=== PATIENT | female | born 1950 | race Caucasian/White ===

== ENCOUNTER 2018-06-02 21:39 | Emergency (ER) | payer OTHER ==
--- NOTE | 2018-06-02 21:47 | ER Report ---
History and Physical Time Seen By MD: 21:46 HPI/ROS CHIEF COMPLAINT: Hypertension, weakness HISTORY OF PRESENT ILLNESS: Patient is a 68-year-old female with a history of hypertension on losartan here with complaints of hypertension in spite of taking losartan this morning, associated weakness. Patient reportedly took 2 subsequent doses of 50 mg of losartan after taking her morning 100 mg dose with steadily elevating blood pressure in spite of her doses. Patient reports that she became increasingly more weak throughout the course of day but denies fevers, chills, chest pain, shortness of breath, headache, visual disturbances, abdominal pain, nausea, vomiting. Patient was noted be hypertensive with systolic blood pressure of 211/ 101. Patient was given 20 mg of labetalol intravenously at time of evaluation. REVIEW OF SYSTEMS: Constitutional: No fever, no chills, + generalized weakness Eyes: No discharge or blurred vision ENT: No sore throat. Cardiovascular: No chest pain, no palpitations. Respiratory: No cough, no shortness of breath. Gastrointestinal: No abdominal pain, no vomiting. Genitourinary: No hematuria. Musculoskeletal: No back pain. Skin: No rashes. Neurological: No headache. Allergies: Coded Allergies: No Known Drug Allergies (Unverified , 06/02/18) Home Meds Reported Medications Losartan Potassium (LOSARTAN POTASSIUM) 100 Mg Tablet, 100 MG PO QDAY 06/02/18 Constitutional Vital Sign - Last 24 Hours 06/02/18 06/02/18 06/02/18 06/02/18 21:42 21:42 21:44 21:49 Temp 97.9 Pulse 72 85 68 Resp 16 14 B/P (MAP) 211/101 211/101 (137) Pulse Ox 95 94 95 O2 Delivery Room Air 06/02/18 06/02/18 06/02/18 06/02/18 21:54 21:57 21:59 22:00 Pulse 74 68 Resp 21 19 B/P (MAP) 203/103 (136) 190/97 (128) Pulse Ox 97 95 06/02/18 06/02/18 06/02/18 06/02/18 22:04 22:09 22:14 22:15 Pulse 66 69 64 Resp 14 19 15 B/P (MAP) 163/91 (115) Pulse Ox 94 95 95 06/02/18 06/02/18 06/02/18 06/02/18 22:19 22:20 22:24 22:25 Pulse 68 63 Resp 20 12 B/P (MAP) 144/79 (100) 154/81 (105) Pulse Ox 93 93 06/02/18 06/02/18 06/02/18 06/02/18 22:34 22:39 22:40 22:44 Pulse ??? 61 62 Resp 16 14 B/P (MAP) 169/88 (115) 161/82 (108) Pulse Ox 92 93 06/02/18 06/02/18 06/02/18 22:45 22:49 22:50 Pulse 60 Resp 14 B/P (MAP) 161/79 (106) 160/81 (107) Pulse Ox 93 Physical Exam General Appearance: The patient is alert, has no immediate need for airway protection and no signs of toxicity. NAD Eyes: Pupils equal and round no pallor or injection. ENT, Mouth: Mucous membranes are moist. Respiratory: There are no retractions, lungs are clear to auscultation. Cardiovascular: Regular rate and rhythm. Gastrointestinal: Abdomen is soft and non tender, no masses, bowel sounds normal. Neurological: No focal neuro deficits Skin: Warm and dry, no rashes. Musculoskeletal: Neck is supple non tender. Extremities are nontender, nonswollen and have full range of motion. DIFFERENTIAL DIAGNOSIS: After history and physical exam differential diagnosis was considered for infection, primary versus secondary hypertension, hyper tensive urgency, hypertensive emergency Medical Decision Making Data Points Result Diagram: 06/02/18215606/02/182156 Laboratory Hematology Test 06/02/18 21:57 Red Blood Count 4.12 M/uL (4.17-5.56) Mean Corpuscular Volume 92.2 fL (80.0-96.0) Mean Corpuscular Hemoglobin 31.6 pg (26.0-33.0) Mean Corpuscular Hemoglobin Concent 34.3 g/dL (32.0-36.0) Red Cell Distribution Width 13.7 % (11.5-14.5) Mean Platelet Volume 7.6 fL (7.2-11.1) Neutrophils (%) (Auto) 52.2 % (39.4-72.5) Lymphocytes (%) (Auto) 39.1 % (17.6-49.6) Monocytes (%) (Auto) 6.4 % (4.1-12.4) Eosinophils (%) (Auto) 1.6 % (0.4-6.7) Basophils (%) (Auto) 0.7 % (0.3-1.4) Nucleated RBC Relative Count (auto) 0.1 /100WBC Neutrophils # (Auto) 3.9 K/uL (2.0-7.4) Lymphocytes # (Auto) 2.9 K/uL (1.3-3.6) Monocytes # (Auto) 0.5 K/uL (0.3-1.0) Eosinophils # (Auto) 0.1 K/uL (0.0-0.5) Basophils # (Auto) 0.0 K/uL (0.0-0.1) Nucleated RBC Absolute Count (auto) 0.01 K/uL Sodium Level 140 mmol/L (137-145) Potassium Level 3.6 mmol/L (3.5-5.0) Chloride Level 103 mmol/L (98-107) Carbon Dioxide Level 26 mmol/L (22-31) Blood Urea Nitrogen 41 mg/dl (7-18) Creatinine 0.80 mg/dl (0.52-1.04) Glomerular Filtration Rate Calc > 60.0 Random Glucose 99 mg/dl (75-110) Calcium Level 10.2 mg/dl (8.4-10.2) Total Bilirubin 0.2 mg/dl (0.2-1.3) Aspartate Amino Transf (AST/SGOT) 21 U/L (0-35) Alanine Aminotransferase (ALT/SGPT) 27 U/L (0-56) Alkaline Phosphatase 113 U/L (0-126) Troponin I < 0.012 ng/ml Total Protein 8.0 g/dl (6.3-8.2) Albumin 4.2 g/dl (3.5-5.0) Chemistry Test 06/02/18 21:57 White Blood Count 7.4 k/uL (4.5-11.0) Red Blood Count 4.12 M/uL (4.17-5.56) Hemoglobin 13.0 g/dL (12.0-16.0) Hematocrit 38.0 % (34.0-47.0) Mean Corpuscular Volume 92.2 fL (80.0-96.0) Mean Corpuscular Hemoglobin 31.6 pg (26.0-33.0) Mean Corpuscular Hemoglobin Concent 34.3 g/dL (32.0-36.0) Red Cell Distribution Width 13.7 % (11.5-14.5) Platelet Count 338 K/uL (150-450) Mean Platelet Volume 7.6 fL (7.2-11.1) Neutrophils (%) (Auto) 52.2 % (39.4-72.5) Lymphocytes (%) (Auto) 39.1 % (17.6-49.6) Monocytes (%) (Auto) 6.4 % (4.1-12.4) Eosinophils (%) (Auto) 1.6 % (0.4-6.7) Basophils (%) (Auto) 0.7 % (0.3-1.4) Nucleated RBC Relative Count (auto) 0.1 /100WBC Neutrophils # (Auto) 3.9 K/uL (2.0-7.4) Lymphocytes # (Auto) 2.9 K/uL (1.3-3.6) Monocytes # (Auto) 0.5 K/uL (0.3-1.0) Eosinophils # (Auto) 0.1 K/uL (0.0-0.5) Basophils # (Auto) 0.0 K/uL (0.0-0.1) Nucleated RBC Absolute Count (auto) 0.01 K/uL Glomerular Filtration Rate Calc > 60.0 Calcium Level 10.2 mg/dl (8.4-10.2) Total Bilirubin 0.2 mg/dl (0.2-1.3) Aspartate Amino Transf (AST/SGOT) 21 U/L (0-35) Alanine Aminotransferase (ALT/SGPT) 27 U/L (0-56) Alkaline Phosphatase 113 U/L (0-126) Troponin I < 0.012 ng/ml Total Protein 8.0 g/dl (6.3-8.2) Albumin 4.2 g/dl (3.5-5.0) ED Course/Re-evaluation ED Course Patient is a 68-year-old female here with complaints of hypertension, weakness starting this morning with increasingly elevated blood pressure levels in spite of taking extra doses of losartan. Patient reportedly took 100 mg this morning which is her normal dose and then two separate doses of 50 mg throughout the day with increasing weakness. Patient had a blood pressure 211/101 at time of arrival and was given 20 mg of labetalol. Labs were checked including CBC, CMP, troponin to assess for end organ damage. Patient had no focal neurological deficits at time of evaluation, stroke signs, motor weaknesses, altered mental status, headache or reports of blurred vision. Kidney function was intact, troponin showed no acute aberrancy. Patient responded well to dose of labetalol and patient was advised to follow up within the next 24 hours with her PCP for blood pressure recheck and possible need for medication changes as necessary. Patient remained hemodynamically stable throughout course with no subsequent changes in neurological functioning. Decision to Disposition Date: Jun 02, 2018 Decision to Disposition Time: 22:52 Depart Departure Latest Vital Signs Vital Signs Date Time Temp Pulse Resp B/P (MAP) Pulse Ox O2 Delivery O2 Flow Rate FiO2 06/02/18 22:50 160/81 (107) 06/02/18 22:49 60 14 93 06/02/18 21:42 97.9 Room Air Impression: Primary Impression: Hypertension Condition: Improved Disposition: HOME OR SELF-CARE Patient Instructions: Hypertension (ED) Additional Instructions: Please follow-up with your family doctor within the next 24 hours for a blood pressure recheck. Your kidney function and heart function was found to be normal today. You were given labetalol intravenously for blood pressure control. Please return promptly if you develop high blood pressure, headaches, visual changes, weakness in her arms or legs, facial droop, chest pain or trouble breathing, abd ominal pain, nausea, vomiting. ANDREINA GARCIA DO Jun 02, 2018 21:47
[2018-06-02] MEDS ORDERED: LOSA100T69 PO (21:55)
[2018-06-02] MEDS ORDERED: LABETALOL HCL 100 MG/20ML VIAL IVP ONE (22:05)
[2018-06-02 22:18] LABS: PLATELET COUNT, AUTOMATED 338 K/uL (150-450)
[2018-06-02 22:50] VITALS: BP 160/81
== END 2018-06-02 23:05 | disposition home or self-care (01) ==
LOC: ER 21:57
DX: I10 Essential (primary) hypertension (principal)
CPT/HCPCS: 84484; 85025; 96374; 99283; J3490; 82040; 82247; 82310; 82374; 82435; 82565; 82947; 84075; 84132; 84155; 84295; 84450; 84460; 84520

== ENCOUNTER → 2018-06-12 | Outpatient (CLI) | payer OTHER ==
[~2018-06-12] MED LIST: LOSA100T69 PO
--- NOTE | 2018-06-12 10:45 | RADIOLOGY IMAGING REPORT ---
FACILITY: [facility] [place] PATIENT NAME: ASHLEIGH CARCAMO : [id number] MR: [id number] V: [id number] EXAM DATE: ORDERING PHYSICIAN: LUL SAN TECHNOLOGIST: Margie Webb PROCEDURE:BILATERAL DIGITAL SCREENING MAMMOGRAM WITH CAD ASSISTED INTERPRETATION & 3D TOMOSYNTHESIS COMPARISON:Prior mammograms 09/04/16, 09/05/15, 08/30/15. INDICATIONS:SCREENING FINDINGS: Moderately heterogeneous fibroglandular tissue is seen throughout the breasts. The parenchymal pattern has remained stable allowing for difference in mammographic technique & patient positioning. There is no evidence of malignant appearing mass, malignant appearing calcifications or other secondary sign of malignancy in either breast. DIAGNOSTIC CATEGORY 1--NEGATIVE. RECOMMENDATIONS: ROUTINE MAMMOGRAM AND CLINICAL EVALUATION. IMPRESSION: BIRADS 1: Negative. No significant abnormality is seen. Dictated by: Meg Romero M.D. on 06/12/2018 at 10:20 Transcribed by: MARY BETH on 06/12/2018 at 10:23 Approved by: Meg Romero M.D. on 06/12/2018 at 10:44 [facility]
== END ==
LOC: MAMO 06-09 14:57
PROVIDERS: ATTEND Family Medicine
DX: Z12.31 Encounter for screening mammogram for malignant neoplasm of breast (principal)
CPT/HCPCS: 77063; 77067